=== PATIENT | female | born 1975 | race Two or more races ===

== ENCOUNTER → 2016-12-24 | Outpatient (CLI) | payer OTHER ==
--- NOTE | 2016-12-26 18:53 | CPEEG ---
[f rep st] ELECTROENCEPHALOGRAM DATE OF STUDY: 12/24/2016 INTERPRETATION: Normal EEG during wakefulness and sleep. There were no potentially epileptogenic a bnormalities present during the recording. REPORT: This EEG contains 9-10 Hz alpha to the posterior head regions. There was no abnormal activ ation at rest, during photic stimulation, or hyperventilation. The patient became drowsy and fell a sleep during the study. There was no abnormal activation during drowsiness, sleep, or during times of arousal. Copy requested to: Dr. Gamboa [facility] – [place] /[id number]/MODL
== END ==
LOC: FCPNEURO 11:17
PROVIDERS: ATTEND Psychiatry & Neurology Neurology
DX: R25.9 Unspecified abnormal involuntary movements (principal)

== ENCOUNTER → 2017-09-11 | Outpatient (CLI) | payer OTHER | LOC: BMCIMAGING 11:09 | PROVIDERS: ATTEND Family Medicine | DX: M25.551 Pain in right hip (principal) ==

== ENCOUNTER 2018-10-22 19:20 | Emergency (ER) | payer OTHER ==
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
[2018-10-22 19:39] VITALS: BP 118/65
[2018-10-22] MEDS ORDERED: HYDROCOD/APAP 5/325 PREPACK#6 BTL TAKEHOME ONE (20:35)
== END 2018-10-22 19:56 | disposition home or self-care (01) ==
LOC: EDUNIT#
DX: S20.312A Abrasion of left front wall of thorax, initial encounter (principal); V49.49XA Driver injured in collision with other motor vehicles in traffic accident, initial encounter; Y92.410 Unspecified street and highway as the place of occurrence of the external cause